=== PATIENT | female | born 1980 | race Asian ===

== ENCOUNTER 2018-09-30 07:13 | Day surgery (SDC) | payer OTHER ==
[~2018-09-30] VITALS: Ht 149.9 cm; Wt 76.1 kg
[~2018-09-30 07:13] MED LIST: NAPR220C23 PO; NS 1,000 ML IV ONE; OMEP10CASR PO
[2018-09-30] MEDS ORDERED: LIDOCAINE 2% INJ 100 MG/5 ML SDV (FOR ANES.) As Ordered ONE (08:07)
[2018-09-30] MEDS ORDERED: fentaNYL 100 MCG/2 ML INJECTION (J3010) As Ordered ONE (08:07)
[2018-09-30] MEDS ORDERED: PROPOFOL 500 MG/50 ML VIAL As Ordered ONE (08:07)
--- NOTE | 2018-09-30 08:18 | ROOR ---
Patient Name: Cydney Matos Procedure Date: 09/30/2018 8:01 AM Date of : 1980 Age: 37 Room: [facility] Gender: Female Note Status: Finalized Procedure: Upper Endoscopy + Biopsies Indications: Heartburn, Exclusion of Carr's esophagus Providers: Frederic Hodges MD Referring MD: Latesha Leslie ([facility])MD Requesting Provider: Medicines: Monitored Anesthesia Care Complications: No immediate complications. Procedure: Pre-Anesthesia Assessment: - The heart rate, respiratory rate, oxygen saturations, blood pressure, adequacy of pulmonary ventilation, and response to care were monitored throughout the procedure. The Endoscope was introduced through the mouth, and advanced to the second part of duodenum. The upper GI endoscopy was accomplished without difficulty. The patient tolerated the procedure well. Findings: The Z-line was regular and was found 35 cm from the incisors. Multiple biopsies were obtained with cold forceps for evaluation to rule out Carr's Esophagus randomly at the gastroesophageal junction. No other significant abnormalities were identified in a careful examination of the stomach. Biopsies were taken with a cold forceps in the gastric antrum for Helicobacter pylori testing. Localized mildly congested mucosa without active bleeding and with no stigmata of bleeding was found in the duodenal bulb. The exam was otherwise without abnormality. Impression: - Z-line regular, 35 cm from the incisors. - Congested duodenal mucosa. - The examination was otherwise normal. - Multiple biopsies were obtained at the gastroesophageal junction. - Biopsies were taken with a cold forceps for Helicobacter pylori testing. - The examination was otherwise normal. Recommendation: - Patient has a contact number available for emergencies. The signs and symptoms of potential delayed complications were discussed with the patient. Return to normal activities tomorrow. Written discharge instructions were provided to the patient. - High fiber diet. - Discharge patient to home. - Follow an antireflux regimen. - Continue present medications. - Await pathology results. - Telephone GI clinic for pathology results in 1 week. - Return to referring physician. - The findings and recommendations were discussed with the patient's family. Frederic Hodges MD Frederic Hodges MD 09/30/2018 8:18:05 AM Electronically signed by Frederic Hodges MD Number of Addenda: 0 Note Initiated On: 09/30/2018 8:01 AM Estimated Blood Loss: Estimated blood loss: none.
[2018-09-30 08:40] VITALS: BP 154/98
== END 2018-09-30 08:51 | disposition home or self-care (01) ==
LOC: M OPP 07:13
PROVIDERS: ATTEND Internal Medicine Gastroenterology
DX: R12 Heartburn (principal); K31.89 Other diseases of stomach and duodenum; K21.9 Gastro-esophageal reflux disease without esophagitis; Z79.899 Other long term (current) drug therapy
CPT/HCPCS: 43239; 88305; J3010

== ENCOUNTER → 2019-03-13 | Outpatient (CLI) | payer OTHER ==
[~2019-03-13] MED LIST changes: -NS 1,000 ML IV ONE
--- NOTE | 2019-03-13 12:11 | REPMRS ---
Patient History The patient states she had a clinical breast exam in November 2018. No known family history of cancer. Digital Mammo Screening Bilat: March 13, 2019 - Exam #: [id number] Bilateral CC and MLO view(s) were taken. Technologist: Maria Del Carmen Tucker Technologist FINDINGS: There are scattered fibroglandular densities. There is a 15 mm well-circumscribed asymmetric nodule in the upper outer quadrant of the left breast which merits further evaluation. In addition, in the superior medial quadrant left breast there is a smaller partially obscured asymmetric nodular density which also merits further evaluation. This measures 9 mm in greatest diameter. There is a small normal appearing intramammary lymph node on the right. There is no other evidence of dominant mass, architectural distortion, or grouped microcalcification typical of malignancy. Assessment: BI-RADS/ACR category 0 mammogram, Incomplete: Need additional imaging evaluation and/or prior mammograms for comparison. Recommendation Ultrasound and special view mammogram of the left breast. This patient's Lifetime Breast Cancer RIsk is estimated at 12.5 %. This mammogram was interpreted with the aid of an FDA-approved computer-aided dectection system. Electronically Signed By: Ryley Flynn MD 03/13/19 [id number]
== END ==
LOC: M RAD 10:51
PROVIDERS: ATTEND Student in an Organized Health Care Education/Training Program
DX: Z12.31 Encounter for screening mammogram for malignant neoplasm of breast (principal)

== ENCOUNTER → 2019-03-21 | Outpatient (CLI) | payer OTHER ==
--- NOTE | 2019-03-21 19:11 | REP ---
Digital diagnostic unilateral left breast mammography with CAD and focused left breast sonography: History: Baseline screening mammography in March 13, 2019 was BIRADS category zero incomplete because of a two separate nodular density is visible in the left breast on initial mammography. Mammographic findings: Magnified focal spot compression CC, MLO, and true mediolateral views of the left breast were obtained. These confirm a low-density 9 mm nodule in the superior medial quadrant with partially obscured margins. In the superior and lateral quadrant there is a well-circumscribed higher density 13 mm nodule. Scattered benign calcifications. No other mammographic abnormality. Sonographic findings: The superior half of the left breast is scanned sonographically. At 10 o'clock position in the superior medial quadrant there is a cluster of cysts 9 mm in diameter. This does not appear suspicious sonographically. In the superolateral quadrant at approximately the 1 o'clock position, there is a solid hypoechoic oval shaped lesion 1.3 x 0.9 x 1.4 cm in diameter. This is felt to account for the higher density opacity. This displays a well defined back wall and some enhanced through transmission. 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 Impression: BIRADS category four suspicious left breast imaging. Solid 1.4 cm hypoechoic nodule upper outer quadrant left breast may be a fibroadenoma. Recommend ultrasound guided needle biopsy of this nodule with marker clip placement and post marker clip placement mammography. BIRADS 4: BI-RADS/ACR category 4 mammogram. Suspicious Abnormality - biopsy should be considered. This mammogram was interpreted with the aid of an FDA-approved computer-aided detection system. Electronically Signed by Jonathan Flynn MD 03/22/2019 08:11 A
== END ==
LOC: M RAD 12:42
PROVIDERS: ATTEND Student in an Organized Health Care Education/Training Program
DX: Z12.31 Encounter for screening mammogram for malignant neoplasm of breast (principal)